=== PATIENT | female | born 1940 ===

== ENCOUNTER → 2017-07-28 | Day surgery (SDC) | payer OTHER ==
[~2017-07-28] MED LIST: ADVIL200 MG PO; CIPRO250 MG PO
== END | disposition home or self-care (01) ==
LOC: ADM 07-20 10:00 → CIR.AMB 07:15
DX: N95.0 Postmenopausal bleeding (principal); R93.8 Abnormal findings on diagnostic imaging of other specified body structures

== ENCOUNTER 2018-06-26 08:25 | Inpatient (IN) | payer OTHER ==
[~2018-06-26] VITALS: Ht 157.5 cm; Wt 50.3 kg
[2018-06-26] MEDS ORDERED: AVAPRO150 MG (08:38)
[2018-06-26] MEDS ORDERED: BISOPROLOL FUMA10 MG (08:38)
[2018-06-26] MEDS ORDERED: RILUZOLE50 MG (08:39)
[2018-07-28] MEDS ORDERED: AVAPRO150 MG PO (13:31)
[2018-07-28] MEDS ORDERED: CLONAZEPAM0.5 MG PO (13:31)
[2018-07-28] MEDS ORDERED: LEVOTHYROXINE50 MCG PO (13:32)
[2018-07-28] MEDS ORDERED: POLY119PG PO (13:32)
[2018-07-28] MEDS ORDERED: POM (MEDICAMENTO EN PO ×2 (13:33)
[2018-07-28] MEDS ORDERED: FUSION PLUS CA1 EACH PO (13:33)
[2018-07-28] MEDS ORDERED: INTESTINEX680 M1 PO (13:34)
== END 2018-07-28 16:33 | DRG 393 ==
LOC: ER 08:25 → SEC-K 20:27 → MEDI 20:27 → MEDJ 07-09 08:10
PROVIDERS: ADMIT Internal Medicine
PROC: 0T9B70Z Drainage of Bladder with Drainage Device, Via Natural or Artificial Opening (ICD-10-PCS; 2018-06-26)
PROC: 02HV33Z Insertion of Infusion Device into Superior Vena Cava, Percutaneous Approach (ICD-10-PCS; 2018-06-26)
PROC: 0W9H30Z Drainage of Retroperitoneum with Drainage Device, Percutaneous Approach (ICD-10-PCS; principal; 2018-06-27)
PROC: 3E0336Z Introduction of Nutritional Substance into Peripheral Vein, Percutaneous Approach (ICD-10-PCS; 2018-06-28)
PROC: 0WBH3ZX Excision of Retroperitoneum, Percutaneous Approach, Diagnostic (ICD-10-PCS; 2018-07-06)
PROC: 30233N1 Transfusion of Nonautologous Red Blood Cells into Peripheral Vein, Percutaneous Approach (ICD-10-PCS; 2018-07-06)
PROC: 8E0ZXY6 Isolation (ICD-10-PCS; 2018-07-09)
DX: K63.1 Perforation of intestine (nontraumatic) (principal); K65.1 Peritoneal abscess; N32.1 Vesicointestinal fistula; G12.21 Amyotrophic lateral sclerosis; K61.2 Anorectal abscess; E03.8 Other specified hypothyroidism; K43.9 Ventral hernia without obstruction or gangrene; K57.30 Diverticulosis of large intestine without perforation or abscess without bleeding; K64.0 First degree hemorrhoids; I11.9 Hypertensive heart disease without heart failure; B96.29 Other Escherichia coli [E. coli] as the cause of diseases classified elsewhere; B96.1 Klebsiella pneumoniae [K. pneumoniae] as the cause of diseases classified elsewhere; K56.41 Fecal impaction; D64.89 Other specified anemias; B95.2 Enterococcus as the cause of diseases classified elsewhere; B95.4 Other streptococcus as the cause of diseases classified elsewhere; B96.6 Bacteroides fragilis [B. fragilis] as the cause of diseases classified elsewhere; R31.29 Other microscopic hematuria

== ENCOUNTER 2019-04-13 15:15 | Inpatient (IN) | payer OTHER ==
[~2019-04-13] VITALS: Ht 167.6 cm; Wt 45.4 kg
[~2019-04-13 15:15] MED LIST changes: +AVAPRO150 MG; +AVAPRO150 MG PO; +BISOPROLOL FUMA10 MG; +CLONAZEPAM0.5 MG PO; +FUSION PLUS CA1 EACH PO; +INTESTINEX680 M1 PO; +LEVOTHYROXINE50 MCG PO; +POLY119PG PO; +POM (MEDICAMENTO EN PO; +RILUZOLE50 MG
[2019-04-13] MEDS ORDERED: DIOVAN160 M1 PO (15:35)
[2019-04-13] MEDS ORDERED: VITAMIN C500 M3 PO (15:36)
[2019-04-13] MEDS ORDERED: OMEGA 3 1,0001 EACH PO (15:37)
[2019-04-13] MEDS ORDERED: BYSTOLIC10 MG PO (15:37)
[2019-04-27] MEDS ORDERED: LEVOTHYROXINE50 MCG PO (13:50)
[2019-04-27] MEDS ORDERED: POM (MEDICAMENTO EN PO (13:50)
== END 2019-04-27 18:07 | disposition home health service (06) | DRG 56 ==
LOC: ER 15:15 → SEC-K 04-14 00:20 → SURG 04-14 00:20 → MEDI 04-17 13:04
PROVIDERS: ADMIT Internal Medicine
PROC: 30233N1 Transfusion of Nonautologous Red Blood Cells into Peripheral Vein, Percutaneous Approach (ICD-10-PCS; principal; 2019-04-14)
PROC: 0T9B70Z Drainage of Bladder with Drainage Device, Via Natural or Artificial Opening (ICD-10-PCS; 2019-04-14)
PROC: 0DH67UZ Insertion of Feeding Device into Stomach, Via Natural or Artificial Opening (ICD-10-PCS; 2019-04-14)
PROC: 3E0G76Z Introduction of Nutritional Substance into Upper GI, Via Natural or Artificial Opening (ICD-10-PCS; 2019-04-14)
PROC: 4A033R1 Measurement of Arterial Saturation, Peripheral, Percutaneous Approach (ICD-10-PCS; 2019-04-18)
PROC: 02HV33Z Insertion of Infusion Device into Superior Vena Cava, Percutaneous Approach (ICD-10-PCS; 2019-04-18)
PROC: 5A09457 Assistance with Respiratory Ventilation, 24-96 Consecutive Hours, Continuous Positive Airway Pressure (ICD-10-PCS; 2019-04-19)
PROC: 0DH63UZ Insertion of Feeding Device into Stomach, Percutaneous Approach (ICD-10-PCS; 2019-04-25)
DX: G12.21 Amyotrophic lateral sclerosis (principal); J69.0 Pneumonitis due to inhalation of food and vomit; J90 Pleural effusion, not elsewhere classified; T17.898A Other foreign object in other parts of respiratory tract causing other injury, initial encounter; E44.0 Moderate protein-calorie malnutrition; J98.11 Atelectasis; K92.1 Melena; D63.8 Anemia in other chronic diseases classified elsewhere; E03.8 Other specified hypothyroidism; K57.30 Diverticulosis of large intestine without perforation or abscess without bleeding; K43.9 Ventral hernia without obstruction or gangrene; K64.0 First degree hemorrhoids; N39.8 Other specified disorders of urinary system; R13.19 Other dysphagia; I87.2 Venous insufficiency (chronic) (peripheral); I10 Essential (primary) hypertension; R31.0 Gross hematuria; Z74.01 Bed confinement status

== ENCOUNTER 2019-05-19 17:27 | Emergency (ER) | payer OTHER ==
[~2019-05-19] VITALS: Ht 144.8 cm; Wt 52.2 kg
[~2019-05-19 17:27] MED LIST changes: +BYSTOLIC10 MG PO; +DIOVAN160 M1 PO; +OMEGA 3 1,0001 EACH PO; +VITAMIN C500 M3 PO
== END 2019-05-19 19:19 | disposition home or self-care (01) ==
LOC: ER 17:27
DX: K94.29 Other complications of gastrostomy (principal)

== ENCOUNTER → 2019-05-25 | Emergency (ER) | payer OTHER ==
[~2019-05-25] VITALS: Ht 165.1 cm; Wt 49.9 kg
== END | disposition home or self-care (01) ==
LOC: ER 09:39
DX: K94.23 Gastrostomy malfunction (principal)